=== PATIENT | male | born 1990 | race African-American/Black ===

== ENCOUNTER 2019-07-18 14:28 | Emergency (ER) | payer OTHER ==
[2019-07-18] MEDS ORDERED: cloNIDine 0.1 MG Tab PO ONE ×2 (14:39→15:19)
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
[2019-07-18] MEDS ORDERED: hydrALAZINE 20 MG/ML SDV IVPUSH ONE (15:43)
[2019-07-18] MEDS ORDERED: Sodium Chloride 0.9% 10 ML Syringe FLUSH PRN (15:44)
== END 2019-07-18 16:30 | disposition home or self-care (01) ==
LOC: JD.ED 14:28
DX: S39.012A Strain of muscle, fascia and tendon of lower back, initial encounter (principal); I10 Essential (primary) hypertension; E11.43 Type 2 diabetes mellitus with diabetic autonomic (poly)neuropathy; K31.84 Gastroparesis; Z79.899 Other long term (current) drug therapy; V43.52XA Car driver injured in collision with other type car in traffic accident, initial encounter; Y92.410 Unspecified street and highway as the place of occurrence of the external cause
CPT/HCPCS: 96374; 99283; A9270; J0360; 99284

== ENCOUNTER 2019-07-22 19:04 | Emergency (ER) | payer SELFPAY ==
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
[2019-07-22] MEDS ORDERED: Ketorolac 30 MG/ML SDV IM ONE (19:56)
[2019-07-22] MEDS ORDERED: FLU Vacc QS2019-20(6MOS+)/PF 60 MCG/0.5 ML SYRINGE IM ONE (20:30)
== END 2019-07-22 20:39 | disposition home or self-care (01) ==
LOC: JD.ED 19:04
DX: R52 Pain, unspecified (principal); Z23 Encounter for immunization; I10 Essential (primary) hypertension; Z71.6 Tobacco abuse counseling; Z91.14 Patient's other noncompliance with medication regimen; E11.9 Type 2 diabetes mellitus without complications; E66.9 Obesity, unspecified; Z68.29 Body mass index [BMI] 29.0-29.9, adult; F17.210 Nicotine dependence, cigarettes, uncomplicated; Z79.899 Other long term (current) drug therapy
CPT/HCPCS: 90471; 90686; 96372; 99283; J1885; G0008

== ENCOUNTER 2019-07-26 17:22 | Emergency (ER) | payer SELFPAY ==
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
== END 2019-07-26 18:30 | disposition home or self-care (01) ==
LOC: JD.ED 17:22
DX: J98.8 Other specified respiratory disorders (principal); I10 Essential (primary) hypertension; E11.9 Type 2 diabetes mellitus without complications; E66.9 Obesity, unspecified; Z68.29 Body mass index [BMI] 29.0-29.9, adult; F17.210 Nicotine dependence, cigarettes, uncomplicated; Z79.899 Other long term (current) drug therapy
CPT/HCPCS: 87804; 99281; 99283

== ENCOUNTER 2020-10-31 15:06 | Emergency (ER) | payer BC, OTHER ==
[2020-10-31] MEDS ORDERED: Albuterol 0.083% 2.5 MG/3 ML Neb Soln NEB ONE ×2 (15:27→16:59)
[2020-10-31] MEDS ORDERED: predniSONE 20 MG Tab PO STA (15:28)
--- NOTE | 2020-10-31 15:36 | EDM.PDOC ---
ED HPI GENERAL MEDICAL PROBLEM - General Chief Complaint: General Stated Complaint: ASTHMA Time Seen by Provider: 10/31/20 15:16 Source of Information: Reports: Patient History Limitations: Reports: No Limitations - History of Present Illness INITIAL COMMENTS - FREE TEXT/NARRATIVE: 29-year-old male presents to the emergency department complaints of shortness of breath. Patient does have a history of asthma for which he is currently not on any sort of regimen. He states that over the course of about the past week he has been more short of breath and has noted some wheezing. Denies any recent fever, chills or diarrhea. He states he has had some nausea and vomiting but this is chronic for him as he has gastroparesis. He states however that uncontrolled coughing also causes him to vomit. Patient was seen at [facility] today for the symptoms however they sent him to the emergency department for hypertension. Patient states he does have a known history of hypertension however has not been on prescription medications for quite some time. He is not symptomatic with this. He denies any headache, blurred vision or double vision. He denies any chest pain or discomfort. The patient does admit to smoking cigarettes about half pack a day for 10 to 15 years. - Related Data Allergies Allergy/AdvReac Type Severity Reaction Status Date / Time No Known Allergies Allergy Verified 10/31/20 15:18 Home Meds: Home Meds Albuterol Sulfate [Albuterol Sulfate HFA] 8.5 gm INH Q2H PRN #1 inhaler 10/31/20 [Rx] Chlorthalidone 25 mg PO DAILY #20 tab 10/31/20 [Rx] predniSONE [Prednisone] 40 mg PO DAILY #10 tablet 10/31/20 [Rx] Past Medical History - Past Health History Medical/Surgical History: Denies Medical/Surgical History Cardiovascular History: Reports: Hypertension Respiratory History: Reports: Asthma Gastrointestinal History: Reports: Other (See Below) Other Gastrointestinal History: Gastroparesis Genitourinary History: Reports: None Musculoskeletal History: Reports: Fibromyalgia Neurological History: Reports: None Psychiatric History: Reports: None Endocrine/Metabolic History: Reports: Diabetes, Type II, Obesity/BMI 30+ Other Endocrine/Metabolic History: pt was on medication and then taken off of medication by provider back in [place] Hematologic History: Reports: None Immunologic History: Reports: None Oncologic (Cancer) History: Reports: None Dermatologic History: Reports: None - Infectious Disease History Infectious Disease History: Reports: None - Past Surgical History HEENT Surgical History: Reports: Oral Surgery GI Surgical History: Reports: Appendectomy Social & Family History - Family History Family Medical History: No Pertinent Family History - Tobacco Use Tobacco Use Status *Q: Current Every Day Tobacco User Years of Tobacco use: 15 Packs/Tins Daily: 0.5 - Caffeine Use Caffeine Use: Reports: Coffee, Energy Drinks, Soda Other Caffeine Use: occassionally - Recreational Drug Use Recreational Drug Use: Yes Recreational Drug Type: Reports: Marijuana/Hashish Recreational Drug Use Frequency: Socially ED ROS GENERAL - Review of Systems Review Of Systems: Comprehensive ROS is negative, except as noted in HPI. ED EXAM, GENERAL - Physical Exam Exam: See Below Exam Limited By: No Limitations General Appearance: Alert, WD/WN, No Apparent Distress Ears: Normal External Exam, Hearing Grossly Normal Nose: Normal Inspection Throat/Mouth: Normal Inspection, Normal Lips, Normal Voice, No Airway Compromise Head: Atraumatic, Normocephalic Neck: Normal Inspection Respiratory/Chest: No Respiratory Distress, No Accessory Muscle Use, Chest Non- Tender, Wheezing (Inspiratory and expiratory bilaterally). No: Lungs Clear, Normal Breath Sounds Cardiovascular: Normal Peripheral Pulses, Regular Rate, Rhythm, No Edema, No Murmur Peripheral Pulses: 2+: Radial (L), Radial (R) GI/Abdominal: Normal Bowel Sounds, Soft, Non-Tender, No Distention (Male) Exam: Deferred Rectal (Males) Exam: Deferred Back Exam: Normal Inspection, Full Range of Motion Extremities: Normal Inspection Neurological: Alert, Oriented, Normal Cognition Psychiatric: Normal Affect, Normal Mood Skin Exam: Warm, Dry, Intact, Normal Color, No Rash Lymphatic: No Adenopathy Course - Vital Signs Text/Narrative:: 29-year-old male with known history of asthma currently not taking any sort of regimen. States he has been short of breath for about a week with wheezes noted. Upon assessment he does have inspiratory and expiratory wheezes noted bilaterally however he can talk in complete sentences. O2 saturations at the time of ED assessment were 100% on room air. Patient's initial systolic blood pressure is 196 however I am going to watch this for a while while he is in the emergency department and have nursing staff recheck his blood pressures. I have ordered for the patient to receive an albuterol nebulizer treatment, chest x- ray as he has not been seen here in the past and 40 of prednisone p.o. Last Recorded V/S: Last Vital Signs Temp 97.6 F 10/31/20 15:15 Pulse 104 H 10/31/20 15:15 Resp 20 10/31/20 15:15 BP 196/114 H 10/31/20 15:15 Pulse Ox 100 10/31/20 17:00 - Orders/Labs/Meds Orders: Active Orders 24 hr Category Date Time Status RT Aerosol Therapy [RC] ASDIRECTED Care 10/31/20 15:28 Active RT Aerosol Therapy [RC] ASDIRECTED Care 10/31/20 17:00 Active Meds: Medications Discontinued Medications Generic Name Dose Route Start Last Admin Trade Name Cong PRN Reason Stop Dose Admin Albuterol 2.5 mg 10/31/20 15:27 10/31/20 16:28 Albuterol 0.083% 2.5 Mg/3 Ml Neb Soln NEB 10/31/20 15:28 2.5 mg ONETIME ONE Administration Albuterol 2.5 mg 10/31/20 16:59 10/31/20 17:08 Albuterol 0.083% 2.5 Mg/3 Ml Neb Soln NEB 10/31/20 17:00 2.5 mg ONETIME ONE Administration Chlorthalidone 25 mg 10/31/20 16:59 10/31/20 17:13 Chlorthalidone 25 Mg Tab PO 10/31/20 17:00 25 mg ONETIME ONE Administration Prednisone 40 mg 10/31/20 15:28 10/31/20 17:13 Prednisone 20 Mg Tab PO 10/31/20 15:29 40 mg NOW STA Administration - Re-Assessments/Exams Free Text/Narrative Re-Assessment/Exam: 10/31/20 16:21 Radiologist impression 2 view of the chest: 1. Nothing acute is seen on 2 view chest x-ray. 10/31/20 17:12 Patient states that his breathing feels easier after first nebulizer treatment. Reassessment and auscultation of lung sounds still note a fine inspiratory and expiratory wheeze on the right side posteriorly. I have ordered a repeat albuterol nebulizer treatment. Patient's blood pressure has consistently been running in the 180s to 190s over 90s to low 100s. I have ordered for the patient to receive a one-time dose of chlorthalidone 25 mg p.o. 10/31/20 19:11 Patient states his breathing is feeling much better after 2 nebulizer treatments. However his blood pressure remains elevated in the 180s to 190s over 90s. I did consult with Dr. Mckenzie, hospitalist and he states that the medication will likely take a couple of days to take effect however he would have no reservations about sending this patient home as he has been asymptomatic with these blood pressures. The patient will need to follow-up by the middle of next week with a primary care physician. Departure - Departure Time of Disposition: 19:12 Disposition: Home, Self-Care 01 Clinical Impression: Asthma attack Qualifiers: Asthma severity: moderate Asthma persistence: unspecified Qualified Code(s): J45.901 - Unspecified asthma with (acute) exacerbation Hypertension Qualifiers: Hypertension type: essential hypertension Qualified Code(s): I10 - Essential (primary) hypertension - Discharge Information Prescriptions: Albuterol Sulfate [Albuterol Sulfate HFA] 8.5 gm INH Q2H PRN #1 inhaler PRN Reason: Shortness Of Breath Chlorthalidone 25 mg PO DAILY #20 tab predniSONE [Prednisone] 40 mg PO DAILY #10 tablet Instructions: Hypertension, Adult, [id number], Asthma Attack Referrals: PCP,None [Primary Care Provider] - Forms: ED Department Discharge Additional Instructions: You were seen in the emergency department today after being sent from [facility] with complaints of shortness of breath due to an asthma exacerbation and high blood pressure. You did receive nebulizer treatments while in the emergency department and these did seem to help. I have sent a prescription for an albuterol inhaler to your pharmacy. You may take this every 2 hours as needed for shortness of breath. Keep in mind that if you use this consistently every 2 hours your heart rate will increase. I have also sent a prescription for some prednisone for you to take over the course the next 5 days. You did receive a dose in the emergency department already today so this can be started tomorrow. You will need to take 40 mg daily for 5 days. This medication will help decrease inflammation in your airways. Your blood pressure was quite elevated while in the emergency department 180s to 190s over 100s over 90s. You did receive medication for your blood pressure while in the emergency department. This medication is called chlorthalidone and I have sent a prescription to your pharmacy for this medication as well. You will need to take 1 tab daily for blood pressure management. I also recommended that you start checking your blood pressure 3 times daily and keeping a log of your blood pressure readings. You will need to follow-up and find a primary care physician to manage your blood pressure and asthma symptoms. Take this blood pressure log to your first appointment as they will be able to gauge how well your blood pressure is doing after starting this medication. Should your condition worsen or change do not hesitate from returning to the emergency department. Sepsis Event Note (ED) - Evaluation Sepsis Screening Result: No Definite Risk - Focused Exam Vital Signs: Vital Signs Temp Pulse Resp BP Pulse Ox Pulse Ox 10/31/20 17:00 100 10/31/20 15:28 100 10/31/20 15:15 97.6 F 104 H 20 196/114 H 100 - My Orders Last 24 Hours: My Active Orders 10/31/20 15:28 RT Aerosol Therapy [RC] ASDIRECTED 10/31/20 17:00 RT Aerosol Therapy [RC] ASDIRECTED - Assessment/Plan Last 24 Hours: My Active Orders 10/31/20 15:28 RT Aerosol Therapy [RC] ASDIRECTED 10/31/20 17:00 RT Aerosol Therapy [RC] ASDIRECTED
--- NOTE | 2020-10-31 16:17 | CR ---
Chest: 2 views of the chest were obtained. Comparison: No previous study. Heart size and mediastinum are normal. Lungs are clear with no acute parenchymal change. Bony structures are within normal limits. Impression: 1. Nothing acute is seen on 2 view chest x-ray. Diagnostic code #1
[2020-10-31] MEDS ORDERED: Chlorthalidone 25 MG Tab PO ONE (16:59)
== END 2020-10-31 19:29 | disposition home or self-care (01) ==
LOC: JD.ED 15:06
DX: J45.901 Unspecified asthma with (acute) exacerbation (principal); I10 Essential (primary) hypertension; E11.43 Type 2 diabetes mellitus with diabetic autonomic (poly)neuropathy; K31.84 Gastroparesis; E66.9 Obesity, unspecified; Z68.28 Body mass index [BMI] 28.0-28.9, adult; Z72.0 Tobacco use
CPT/HCPCS: 71046; 94640; 99285; A9270; J7512; 99284

== ENCOUNTER 2022-12-23 15:23 | Emergency (ER) | payer SELFPAY ==
[2022-12-23] MEDS ORDERED: Albuterol 0.083% 2.5 MG/3 ML Neb Soln NEB ONE (15:56)
[2022-12-23] MEDS ORDERED: cloNIDine 0.1 MG Tab PO ONE (16:33)
[2022-12-23 16:36] LABS: BASOPHILS ABSOLUTE AUTO 0.02 K/mm3 (0.01-0.08); BASOPHILS PERCENT AUTO 0.5 % (0.1-1.2); EOSINOPHILS ABSOLUTE AUTO 0.03 K/mm3 (0.04-0.54); EOSINOPHILS PERCENT AUTO 0.7 (0.8-7.0); HEMATOCRIT 46.6 % (40.1-51.0); HEMOGLOBIN 16.1 gm/dl (13.7-17.5); IMMATURE GRAN ABSOLUTE AUTO 0.01 K/mm3 (0.00-0.10); IMMATURE GRAN PERCENT AUTO 0.2 % (<=1.0); LYMPHOCYTES ABSOLUTE AUTO 1.32 K/mm3 (1.32-3.57); LYMPHOCYTES PERCENT AUTO 30.9 % (21.8-53.1); MEAN CORPUSCULAR HEMOGLOBIN 31.3 pg (25.7-32.2); MEAN CORPUSCULAR HGB CONC 34.5 g/dl (32.2-35.5); MEAN CORPUSCULAR VOLUME 90.5 fl (79.0-92.2); MEAN PLATELET VOLUME 9.8 fl (9.4-12.3); MONOCYTES ABSOLUTE AUTO 0.48 K/mm3 (0.30-0.82); MONOCYTES PERCENT AUTO 11.2 % (5.3-12.2); NEUTROPHILS ABSOLUTE AUTO 2.41 K/mm3 (1.78-5.38); NEUTROPHILS PERCENT AUTO 56.5 % (34.0-67.9); PLATELET COUNT,PLT 365 K/mm3 (163-337); RED BLOOD CELL COUNT 5.15 M/mm3 (4.63-6.08); WHITE BLOOD CELL COUNT,WBC 4.27 K/mm3 (4.23-9.07)
[2022-12-23 16:56] LABS: A/G RATIO 0.5 (1-2); ALANINE AMINOTRANSFERASE,ALT 60 U/L (16-63); ALBUMIN 2.8 g/dl (3.4-5.0); ALKALINE PHOSPHATASE 128 U/L (46-116); ANION GAP 14.7 (5-15); ASPARTATE AMNIOTRANSFERASE,AST 65 U/L (15-37); BILIRUBIN TOTAL 0.4 mg/dL (0.2-1.0); BLOOD UREA NITROGEN,BUN 7 mg/dL (7-18); BUN/CREATININE RATIO 7.8 (14-18); C-REACTIVE PROTEIN <0.2 mg/dL (<1.0); CALCIUM 8.4 mg/dL (8.5-10.1); CARBON DIOXIDE,CO2 27 mEq/L (21-32); CHLORIDE,CL 103 mEq/L (98-107); CREATININE 0.9 mg/dL (0.7-1.3); EST CRCL DRUG DOSING (CG) 123.18 mL/min; ESTIMATED GFR 115 mL/min (>60); GLUCOSE RANDOM 144 mg/dL (70-99); POTASSIUM,K 3.7 mEq/L (3.5-5.1); PROTEIN TOTAL,TP 8.1 g/dl (6.4-8.2); SODIUM,NA 141 mEq/L (136-145)
[2022-12-23] MEDS ORDERED: hydrALAZINE 10 MG Tab PO ONE ×2 (17:17→18:33)
[2022-12-23] MEDS ORDERED: Amoxicillin 500 MG Cap PO ONE (18:07)
[2022-12-23] MEDS ORDERED: Azithromycin 250 MG Tab PO ONE (18:08)
== END 2022-12-23 19:57 | disposition home or self-care (01) ==
LOC: JD.ED 15:23
DX: J18.9 Pneumonia, unspecified organism (principal); I10 Essential (primary) hypertension; J45.909 Unspecified asthma, uncomplicated; E11.9 Type 2 diabetes mellitus without complications; F17.210 Nicotine dependence, cigarettes, uncomplicated; Z79.899 Other long term (current) drug therapy
CPT/HCPCS: 36415; 71045; 80053; 85025; 86140; 94640; 99285; A9270; 99283; J7620-GY

== ENCOUNTER 2023-12-25 13:25 | Inpatient (IN) | payer SELFPAY ==
[2023-12-25 14:40] LABS: CORONAVIRUS COVID-19 NAA NEGATIVE (NEGATIVE); INFLUENZA A NAA NEGATIVE (NEGATIVE); RESPIRATORY SYNCYTIAL VIR NAA NEGATIVE (NEGATIVE)
[2023-12-25] MEDS: Albuterol/Ipratropium 3.0-0.5 MG/3 ML Neb Soln NEB ONE (15:05)
[2023-12-25 15:22] LABS: BASOPHILS PERCENT AUTO 0.4 % (0.0-1.0); EOSINOPHILS PERCENT AUTO 0.5 % (0.0-6.0); HEMATOCRIT 40.4 % (42.0-52.0); HEMOGLOBIN 13.9 gm/dl (14.0-18.0); IMMATURE GRAN ABSOLUTE AUTO 0.01 K/mm3 (0.00-0.05); IMMATURE GRAN PERCENT AUTO 0.2 % (0.0-0.4); LYMPHOCYTES PERCENT AUTO 16.8 % (24.0-44.0); MEAN CORPUSCULAR HEMOGLOBIN 31.7 pg (28.0-32.0); MEAN CORPUSCULAR HGB CONC 34.4 g/dl (32.0-36.0); MEAN CORPUSCULAR VOLUME 92.2 fl (83.0-99.0); MEAN PLATELET VOLUME 9.5 fl (9.4-12.4); MONOCYTES ABSOLUTE AUTO 0.5 K/mm3 (0.0-0.8); MONOCYTES PERCENT AUTO 9.5 % (0.0-8.0); NEUTROPHILS ABSOLUTE AUTO 4.1 K/mm3 (1.8-7.7); NEUTROPHILS PERCENT AUTO 72.6 % (41.0-71.0); PLATELET COUNT,PLT 281 K/mm3 (150-400); RED BLOOD CELL COUNT 4.38 M/mm3 (4.52-5.90); WHITE BLOOD CELL COUNT,WBC 5.67 K/mm3 (3.9-11.3)
[2023-12-25 15:42] LABS: A/G RATIO 0.7 (1-2); ALBUMIN 3.2 g/dl (3.4-5.0); ANION GAP 11.1 (5-15); BILIRUBIN TOTAL 0.5 mg/dL (0.2-1.0); C-REACTIVE PROTEIN 1.34 mg/dL (<0.30); CALCIUM 8.6 mg/dL (8.5-10.1); EST CRCL DRUG DOSING (CG) 96.4 mL/min; POTASSIUM,K 4.1 mEq/L (3.5-5.1); PROTEIN TOTAL,TP 7.9 g/dl (6.4-8.2)
[2023-12-25] MEDS: Ondansetron 4 MG/2 ML SDV IVPUSH ONE (15:43)
[2023-12-25] MEDS: Lactated Ringers 1,000 ML IV SCH (15:44)
[2023-12-25] MEDS: Labetalol 100 MG/20 ML MDV IVPUSH ONE (17:28)
[2023-12-25] MEDS: Piperacillin/Tazobactam 4.5 GM in Sodium Chloride 0.9% 100 ML IV ONE (17:36)
[2023-12-25] MEDS ORDERED: HYDROmorphone 0.5 MG/0.5 ML Syringe IVPUSH PRN (17:48)
[2023-12-25] MEDS ORDERED: Promethazine 25 MG Tab PO PRN (17:48)
[2023-12-25] MEDS ORDERED: Albuterol 0.083% 2.5 MG/3 ML Neb Soln NEB PRN (17:48)
[2023-12-25] MEDS ORDERED: Sennosides/Docusate Sodium 50-8.6 MG Tab PO PRN (17:48)
[2023-12-25] MEDS ORDERED: Codeine/guaiFENesin 10-100 MG/5 ML Syrup 5 ML Syringe PO PRN (17:56)
[2023-12-25] MEDS ORDERED: LORazepam 0.5 MG Tab PO PRN (18:01)
[2023-12-25 18:07] LABS: LACTIC ACID 0.6 mmol/L (0.4-2.0)
[2023-12-25 18:31] LABS: TSH 2.519 uIU/mL (0.358-3.74)
[2023-12-25 18:36] LABS: MAGNESIUM 1.2 mg/dL (1.8-2.4); PHOSPHORUS 2.6 mg/dL (2.6-4.7)
[2023-12-25] MEDS: cloNIDine 0.1 MG Tab PO ONE (18:49)
[2023-12-25] MEDS: Pantoprazole 40 MG Tab.CR PO SCH (18:50)
[2023-12-25] MEDS: Lisinopril 5 MG Tab PO SCH (18:50)
[2023-12-25] MEDS: Albuterol/Ipratropium 3.0-0.5 MG/3 ML Neb Soln NEB SCH (20:42)
[2023-12-25] MEDS: Acetaminophen 325 MG Tab PO PRN (22:03)
[2023-12-25] MEDS: guaiFENesin 600 MG Tab.ER PO SCH (22:04)
[2023-12-25] MEDS: Piperacillin/Tazobactam 4.5 GM in Sodium Chloride 0.9% 100 ML IV SCH (22:05)
[2023-12-25] MEDS: hydrALAZINE 20 MG/ML SDV IVPUSH PRN (22:24)
[2023-12-25] MEDS: Acetaminophen/oxyCODONE 325-5 MG Tab PO PRN (23:36)
[2023-12-26] MEDS: Zolpidem 5 MG Tab PO PRN (02:02)
[2023-12-26 05:06] LABS: HEMATOCRIT 38.9 % (42.0-52.0); HEMOGLOBIN 13.1 gm/dl (14.0-18.0); MEAN CORPUSCULAR HEMOGLOBIN 31.7 pg (28.0-32.0); MEAN CORPUSCULAR HGB CONC 33.7 g/dl (32.0-36.0); MEAN CORPUSCULAR VOLUME 94.2 fl (83.0-99.0); PLATELET COUNT,PLT 270 K/mm3 (150-400); RED BLOOD CELL COUNT 4.13 M/mm3 (4.52-5.90); WHITE BLOOD CELL COUNT,WBC 6.25 K/mm3 (3.9-11.3)
[2023-12-26 05:51] LABS: A/G RATIO 0.7 (1-2); ALBUMIN 2.6 g/dl (3.4-5.0); ANION GAP 11.6 (5-15); BILIRUBIN TOTAL 0.6 mg/dL (0.2-1.0); BUN/CREATININE RATIO 9.2 (14-18); CALCIUM 7.8 mg/dL (8.5-10.1); CREATININE 1.2 mg/dL (0.7-1.3); EST CRCL DRUG DOSING (CG) 91.51 mL/min; POTASSIUM,K 3.6 mEq/L (3.5-5.1); PROTEIN TOTAL,TP 6.6 g/dl (6.4-8.2)
[2023-12-26] MEDS: Enoxaparin 40 MG/0.4 ML Syringe SUBCUT SCH (09:25)
[2023-12-26] MEDS: Nicotine 14 MG/24 Hr Patch TRDERM SCH (09:25)
[2023-12-26] MEDS: Magnesium Sulfate/Water 2 GM in Premix Bag 1 BAG IV ONE (12:37)
[2023-12-26] MEDS: Doxycycline 100 MG in Sodium Chloride 0.9% 100 ML IV SCH (12:37)
[2023-12-26] MEDS: amLODIPine 5 MG Tab PO SCH (17:43)
[2023-12-26] MEDS: Nicotine 21 MG/24 Hr Patch TRDERM SCH (17:57)
[2023-12-27] MEDS: diphenhydrAMINE 25 MG Cap PO PRN (03:40)
[2023-12-27 05:46] LABS: BASOPHILS PERCENT AUTO 0.2 % (0.0-1.0); EOSINOPHILS PERCENT AUTO 0.5 % (0.0-6.0); HEMATOCRIT 36.2 % (42.0-52.0); HEMOGLOBIN 12.6 gm/dl (14.0-18.0); IMMATURE GRAN ABSOLUTE AUTO 0.02 K/mm3 (0.00-0.05); IMMATURE GRAN PERCENT AUTO 0.4 % (0.0-0.4); LYMPHOCYTES PERCENT AUTO 17.3 % (24.0-44.0); MEAN CORPUSCULAR HEMOGLOBIN 31.8 pg (28.0-32.0); MEAN CORPUSCULAR HGB CONC 34.8 g/dl (32.0-36.0); MEAN CORPUSCULAR VOLUME 91.4 fl (83.0-99.0); MONOCYTES ABSOLUTE AUTO 0.7 K/mm3 (0.0-0.8); NEUTROPHILS ABSOLUTE AUTO 3.9 K/mm3 (1.8-7.7); NEUTROPHILS PERCENT AUTO 69.6 % (41.0-71.0); PLATELET COUNT,PLT 261 K/mm3 (150-400); RED BLOOD CELL COUNT 3.96 M/mm3 (4.52-5.90)
[2023-12-27 05:50] LABS: ANION GAP 10.4 (5-15); BUN/CREATININE RATIO 9.1 (14-18); CALCIUM 8.1 mg/dL (8.5-10.1); CREATININE 1.1 mg/dL (0.7-1.3); EST CRCL DRUG DOSING (CG) 99.83 mL/min; MAGNESIUM 1.6 mg/dL (1.8-2.4); POTASSIUM,K 3.4 mEq/L (3.5-5.1)
[2023-12-27] MEDS: Lisinopril 10 MG Tab PO SCH (08:53)
[2023-12-27] MEDS: Azithromycin 500 MG in Sodium Chloride 0.9% 250 ML IV SCH (10:27)
[2023-12-27] MEDS: Hydrochlorothiazide 25 MG Tab PO SCH (10:27)
[2023-12-27] MEDS: Potassium Chloride 20 MEQ Tab.ER PO SCH (20:16)
[2023-12-27] MEDS: Magnesium Oxide 400 MG Tab PO SCH (20:16)
[2023-12-28 05:38] LABS: ANION GAP 12.5 (5-15); BUN/CREATININE RATIO 5.6 (14-18); CALCIUM 8.5 mg/dL (8.5-10.1); CREATININE 0.9 mg/dL (0.7-1.3); EST CRCL DRUG DOSING (CG) 122.01 mL/min; MAGNESIUM 1.6 mg/dL (1.8-2.4); POTASSIUM,K 3.5 mEq/L (3.5-5.1)
[2023-12-28 05:46] LABS: BASOPHILS PERCENT AUTO 0.2 % (0.0-1.0); EOSINOPHILS ABSOLUTE AUTO 0.1 K/mm3 (0.0-0.4); EOSINOPHILS PERCENT AUTO 1.2 % (0.0-6.0); HEMATOCRIT 37.1 % (42.0-52.0); HEMOGLOBIN 12.9 gm/dl (14.0-18.0); IMMATURE GRAN ABSOLUTE AUTO 0.01 K/mm3 (0.00-0.05); IMMATURE GRAN PERCENT AUTO 0.2 % (0.0-0.4); LYMPHOCYTES PERCENT AUTO 22.1 % (24.0-44.0); MEAN CORPUSCULAR HEMOGLOBIN 31.9 pg (28.0-32.0); MEAN CORPUSCULAR HGB CONC 34.8 g/dl (32.0-36.0); MEAN CORPUSCULAR VOLUME 91.6 fl (83.0-99.0); MEAN PLATELET VOLUME 9.6 fl (9.4-12.4); MONOCYTES ABSOLUTE AUTO 0.6 K/mm3 (0.0-0.8); MONOCYTES PERCENT AUTO 14.9 % (0.0-8.0); NEUTROPHILS ABSOLUTE AUTO 2.6 K/mm3 (1.8-7.7); NEUTROPHILS PERCENT AUTO 61.4 % (41.0-71.0); PLATELET COUNT,PLT 292 K/mm3 (150-400); RED BLOOD CELL COUNT 4.05 M/mm3 (4.52-5.90); WHITE BLOOD CELL COUNT,WBC 4.29 K/mm3 (3.9-11.3)
[2023-12-28] MEDS: Hydrochlorothiazide 25 MG Tab PO SCH (09:12)
[2023-12-28] MEDS: Lisinopril 20 MG Tab PO SCH (09:12)
[2023-12-28] MEDS: cloNIDine 0.1 MG Tab PO ONE (09:13)
[2023-12-28] MEDS ORDERED: Benzonatate 100 MG Cap PO PRN (11:06)
[2023-12-28] MEDS ORDERED: Non-Formulary Medication 1 Each (Albuterol Sulfate 8.5 GM Inhaler) INH PRN (11:08)
[2023-12-29] MEDS ORDERED: Azithromycin 250 MG Tab PO SCH (09:00)
== END 2023-12-28 12:12 | disposition home or self-care (01) | DRG 193 ==
LOC: JD.ED 13:25 → JD.MS 17:49
PROVIDERS: ADMIT Internal Medicine; ATTEND Internal Medicine
DX: J15.7 Pneumonia due to Mycoplasma pneumoniae (principal); J96.01 Acute respiratory failure with hypoxia; I10 Essential (primary) hypertension; E11.43 Type 2 diabetes mellitus with diabetic autonomic (poly)neuropathy; K31.84 Gastroparesis; J45.909 Unspecified asthma, uncomplicated; E87.6 Hypokalemia; E83.42 Hypomagnesemia; H54.7 Unspecified visual loss; Z90.49 Acquired absence of other specified parts of digestive tract; Z91.030 Bee allergy status; Z79.899 Other long term (current) drug therapy
CPT/HCPCS: 0241U; 36415; 71045; 71045-26; 71250; 71250-26; 80048; 80053; 83036; 83605; 83735; 83880; 84100; 84443; 84484; 85025; 85027; 85379; 86140; 86738; 87040; 87651-QW; 87899; 93005; 93010; 94640; 94667; 94668; 94761; 96361; 96374; 96375; 99285; 99285-25; A9270-GY; J0360; J0456; J1650; J1921; J2405; J2543; J3475; J3490; J7050; J7120; J7620-GY

== ENCOUNTER 2023-12-31 13:21 | Emergency (ER) | payer OTHER ==
[2023-12-31 13:48] LABS: BASOPHILS PERCENT AUTO 0.4 % (0.0-1.0); EOSINOPHILS ABSOLUTE AUTO 0.1 K/mm3 (0.0-0.4); EOSINOPHILS PERCENT AUTO 1.3 % (0.0-6.0); HEMATOCRIT 43.2 % (42.0-52.0); IMMATURE GRAN ABSOLUTE AUTO 0.02 K/mm3 (0.00-0.05); IMMATURE GRAN PERCENT AUTO 0.4 % (0.0-0.4); LYMPHOCYTES ABSOLUTE AUTO 1.4 K/mm3 (1.0-4.8); LYMPHOCYTES PERCENT AUTO 25.1 % (24.0-44.0); MEAN CORPUSCULAR HGB CONC 34.5 g/dl (32.0-36.0); MEAN CORPUSCULAR VOLUME 92.7 fl (83.0-99.0); MEAN PLATELET VOLUME 9.2 fl (9.4-12.4); MONOCYTES ABSOLUTE AUTO 0.6 K/mm3 (0.0-0.8); MONOCYTES PERCENT AUTO 11.5 % (0.0-8.0); NEUTROPHILS ABSOLUTE AUTO 3.4 K/mm3 (1.8-7.7); NEUTROPHILS PERCENT AUTO 61.3 % (41.0-71.0); PLATELET COUNT,PLT 328 K/mm3 (150-400); RED BLOOD CELL COUNT 4.66 M/mm3 (4.52-5.90); WHITE BLOOD CELL COUNT,WBC 5.49 K/mm3 (3.9-11.3)
[2023-12-31 14:01] LABS: INR 1.02; PROTHROMBIN TIME 10.9 SECONDS (9.7-12.0)
[2023-12-31 14:02] LABS: PTT,PARTIAL THROMBOPLSTIN TIME 32.5 SECONDS (21.7-31.4)
[2023-12-31 14:09] LABS: HEMOGLOBIN 14.9 gm/dl (14.0-18.0)
[2023-12-31 14:10] LABS: A/G RATIO 0.6 (1-2); ALBUMIN 3.2 g/dl (3.4-5.0); ANION GAP 9.7 (5-15); BILIRUBIN TOTAL 0.3 mg/dL (0.2-1.0); BUN/CREATININE RATIO 17.3 (14-18); CREATININE 1.1 mg/dL (0.7-1.3); EST CRCL DRUG DOSING (CG) 102.88 mL/min; PROTEIN TOTAL,TP 8.4 g/dl (6.4-8.2)
[2023-12-31] MEDS: Labetalol 100 MG/20 ML MDV IVPUSH ONE (14:18)
[2023-12-31] MEDS: propofoL 100 ML IV SCH (14:19)
[2023-12-31 14:22] LABS: POTASSIUM,K 4.7 mEq/L (3.5-5.1)
[2023-12-31] MEDS: niCARdipine HCl 25 MG in Sodium Chloride 0.9% 250 ML IV SCH (14:26)
[2023-12-31] MEDS ORDERED: niCARdipine HCl 25 MG in Sodium Chloride 0.9% 250 ML IV SCH (14:30)
[2023-12-31 14:59] LABS: THC SCREEN,URINE 20 NG/ML PRESUMPTIVE POSITIVE (CUTOFF=50)
[2023-12-31 15:00] LABS: AMPHETAMINES SCREEN, URINE NEGATIVE (CUTOFF=500); BARBITURATE SCREEN,URINE NEGATIVE (CUTOFF=200); BENZODIAZEPINES SCREEN,URINE NEGATIVE (CUTOFF=150); BUPRENORPHINE SCREEN,URINE NEGATIVE (CUTOFF=10); METHADONE SCREEN, URINE NEGATIVE (CUT0FF=200); METHAMPHETAMINES SCREEN, URINE NEGATIVE (CUTOFF=500); OXYCODONE SCREEN,URINE NEGATIVE (CUT0FF=100)
[2023-12-31] MEDS ORDERED: Rocuronium 50 MG/5 ML Vial ONE (15:00)
[2023-12-31] MEDS ORDERED: Etomidate 2 MG/ML 20 ML SDV IVPUSH ONE (15:00)
[2023-12-31] MEDS ORDERED: Succinylcholine 200 MG/10 ML MDV ONE (15:00)
[2023-12-31] MEDS ORDERED: Midazolam 1 MG/ML 5 ML SDV ONE (15:00)
[2023-12-31] MEDS: Labetalol 100 MG/20 ML MDV ONE (18:10)
[2023-12-31] MEDS: propofoL 100 ML ONE (18:10)
== END 2023-12-31 15:00 ==
LOC: JD.ED 13:21
DX: S06.310A Contusion and laceration of right cerebrum without loss of consciousness, initial encounter (principal); I10 Essential (primary) hypertension; E11.9 Type 2 diabetes mellitus without complications; J45.909 Unspecified asthma, uncomplicated; Z91.030 Bee allergy status; Z79.51 Long term (current) use of inhaled steroids; Z79.899 Other long term (current) drug therapy; Z86.19 Personal history of other infectious and parasitic diseases; W19.XXXA Unspecified fall, initial encounter
CPT/HCPCS: 31500; 36415; 51702; 70450; 70450-26; 71045; 71045-26; 80053; 80306; 82947; 84484; 85025; 85610; 85730; 93005; 96365; 96368; 96375; 99291-25; J0330; J1921; J2250; J2704; J3490; J7050